=== PATIENT | female | born 2000 | race Two or more races ===

== ENCOUNTER 2019-02-25 17:51 | Emergency (ER) | payer MEDICAID ==
[~2019-02-25] VITALS: Ht 160 cm; Wt 63.0 kg
[2019-02-25] MEDS ORDERED: KETOROLAC 60MG/2ML VIAL IM ONE (19:15)
[2019-02-25 19:41] LABS: HEMATOCRIT. 39.1 % (36.0-48.0); HEMOGLOBIN. 13.5 g/dL (12.0-16.0); MEAN CORPUSCULAR HEMOGLOBIN 31.3 pg (28.0-32.0); MEAN CORPUSCULAR VOLUME 90.4 fL (81.0-99.0); MEAN PLATELET VOLUME 8.9 fl (7.4-10.4); PLATELET 214 x1000/uL (130-400); RED BLOOD CELL COUNT 4.32 mill/uL (4.2-5.4); RED CELL DISTRIBUTION WIDTH 13.1 % (11.6-14.6)
[2019-02-25] MEDS ORDERED: SODIUM CHLORIDE 0.9% 1,000 ML IV ONE (19:45)
[2019-02-25 19:46] LABS: CHLORIDE 104 mEq/L (98-107)
[2019-02-25 19:53] LABS: CLARITY URINE CLOUDY (CLEAR); COLOR URINE YELLOW (YELLOW); KETONES URINE 3+ (NEGATIVE); LEUKOCYTE ESTERASE URINE 2+ (NEGATIVE); NITRITE URINE POSITIVE (NEGATIVE); OCCULT BLOOD URINE NEGATIVE (NEGATIVE); PROTEIN URINE TRACE (NEGATIVE); SPECIFIC GRAVITY URINE 1.017 (1.005-1.030)
[2019-02-25 19:59] LABS: PLATELET ESTIMATE NORMAL
[2019-02-25 20:03] LABS: *AMPHETAMINES SCREEN URINE NEGATIVE (NEGATIVE); *BARBITURATES SCREEN URINE NEGATIVE (NEGATIVE); *BENZODIAZEPINES SCREEN URINE NEGATIVE (NEGATIVE); *COCAINE SCREEN URINE NEGATIVE (NEGATIVE); METHADONE URINE SCREEN NEGATIVE (NEGATIVE); OPIATES URINE SCREEN NEGATIVE (NEGATIVE)
[2019-02-25 20:04] LABS: PHENCYCLIDINE URINE SCREEN NEGATIVE (NEGATIVE)
[2019-02-25 20:27] LABS: CANNABINOID URINE SCREEN PRESUMTIVE POSITIVE (NEGATIVE)
[2019-02-25 20:38] LABS: D-DIMER 0.43 mg/L FEU (<0.50); PROTHROMBIN TIME 10.6 sec (9.6-11.0)
[2019-02-25] MEDS ORDERED: SODIUM CHLORIDE 0.9% 1,000 ML IV NR (21:30)
[2019-02-25 22:36] VITALS: BP 98/71
== END 2019-02-25 22:43 | disposition home or self-care (01) ==
LOC: ER 17:51
DX: N12 Tubulo-interstitial nephritis, not specified as acute or chronic (principal)
CPT/HCPCS: 36415; 71045; 80048; 80305; 81003; 81025; 83605; 85025; 85379; 85610; 87077; 87086; 87186; 93005; 96372; 99284; J1885; J7030; Z7610

== ENCOUNTER 2019-04-07 22:33 | Emergency (ER) | payer MEDICAID ==
[~2019-04-07] VITALS: Ht 160 cm; Wt 58.7 kg
[2019-04-08] MEDS ORDERED: ACETAMINOPHEN 325MG TABLET PO STA (02:34)
[2019-04-08] MEDS ORDERED: CEFTRIAXONE 1 G PREMIX 50 ML IV ONE (02:45)
[2019-04-08] MEDS ORDERED: SODIUM CHLORIDE 0.9% 1000ML BAG (SEPSIS BOLUS) IV ONE (02:45)
[2019-04-08 03:08] LABS: BASOPHILS % 0.3 % (0.0-2.0); HEMATOCRIT. 34.5 % (36.0-48.0); LYMPHOCYTES % 12.4 % (20.0-50.0); MEAN CORPUSCULAR HEMOGLOBIN 31.4 pg (28.0-32.0); MEAN PLATELET VOLUME 8.3 fl (7.4-10.4); MONOCYTES % 9.4 % (2.0-8.0); NEUTROPHILS % 77.9 % (40.0-76.0); PLATELET 220 x1000/uL (130-400); RED BLOOD CELL COUNT 3.83 mill/uL (4.2-5.4)
[2019-04-08 03:12] LABS: CLARITY URINE CLOUDY (CLEAR); COLOR URINE YELLOW (YELLOW); KETONES URINE TRACE (NEGATIVE); LEUKOCYTE ESTERASE URINE 1+ (NEGATIVE); NITRITE URINE POSITIVE (NEGATIVE); OCCULT BLOOD URINE 1+ (NEGATIVE); PROTEIN URINE 1+ (NEGATIVE); SPECIFIC GRAVITY URINE 1.022 (1.005-1.030)
[2019-04-08 03:21] LABS: CHLORIDE 101 mEq/L (98-107)
[2019-04-08 03:28] LABS: HCG SCREEN NEGATIVE
[2019-04-08 06:03] VITALS: BP 101/64
== END 2019-04-08 06:04 | disposition home or self-care (01) ==
LOC: ER 22:33
DX: N12 Tubulo-interstitial nephritis, not specified as acute or chronic (principal); R50.9 Fever, unspecified; R42 Dizziness and giddiness; Z87.891 Personal history of nicotine dependence
CPT/HCPCS: 36415; 71045; 80053; 81003; 81025; 83605; 84703; 85025; 87040; 87077; 87086; 87186; 87804; 93005; 96365; 99284; J0696; J7030

== ENCOUNTER 2019-11-13 21:58 | Observation (INO) | payer MEDICAID ==
[~2019-11-13] VITALS: Ht 160 cm; Wt 70.3 kg
[2019-11-13] MEDS ORDERED: PNV1TABL76 PO (22:52)
[2019-11-13] MEDS ORDERED: LACTATED RINGERS 1,000 ML IV SCH ×2 (23:27)
[2019-11-13] MEDS ORDERED: ONDANSETRON HCL 4MG/2ML INJ IV NR (23:30)
[2019-11-13] MEDS ORDERED: TERBUTALINE SULFATE 1MG/ML VIAL SUBCUT PRN (23:30)
[2019-11-13] MEDS ORDERED: LACTATED RINGERS 1,000 ML IV NR (23:45)
== END 2019-11-13 23:32 | disposition home or self-care (01) ==
LOC: 8 EST LDRP 21:58
PROVIDERS: ADMIT Obstetrics & Gynecology; ATTEND Obstetrics & Gynecology
DX: O26.893 Other specified pregnancy related conditions, third trimester (principal); N89.8 Other specified noninflammatory disorders of vagina; Z3A.32 32 weeks gestation of pregnancy
CPT/HCPCS: 99281; G0378

== ENCOUNTER 2022-04-19 01:26 | Emergency (ER) | payer MEDICAID ==
[~2022-04-19] VITALS: Ht 160 cm; Wt 60.1 kg
[~2022-04-19 01:26] MED LIST: PNV1TABL76 PO
[2022-04-19 01:30] VITALS: BP 119/70
== END 2022-04-19 04:26 | disposition home or self-care (01) ==
LOC: ER 01:26
DX: R07.89 Other chest pain (principal); R05.9 Cough, unspecified
CPT/HCPCS: 93005; 99283